=== PATIENT | male | born 1965 | race Caucasian/White ===

== ENCOUNTER 2019-03-09 17:32 | Observation (INO) | payer OTHER ==
[2019-03-09 17:39] VITALS: BMI 39.1
[2019-03-09] MEDS ORDERED: Sodium Chloride 0.9% 1,000 ML IV STA (18:15)
[2019-03-09 19:11] LABS: BASO # 0.02 K/mm3 (0.0-2.0); BASO % 0.2 % (0.0-3.0); EOS # 0.3 (0.0-0.7); EOS % 2.9 % (1.5-5.0); HEMOGLOBIN 13.9 g/dL (14.0-18.0); LYMPH % 21.8 % (22.0-35.0); MEAN CELL VOLUME 90.9 fl (80.0-105.0); MEAN CORPUSCULAR HEMOGLOBIN 31.7 pg (25.0-35.0); MEAN CORPUSCULAR HGB CONC 34.8 g/dl (31.0-37.0); MEAN PLATELET VOLUME 8.9 fl (7.0-11.0); MONO # 0.7 (0.1-0.6); MONO % 8.2 % (1.0-6.0); RBC 4.39 10^6/uL (3.5-6.1); RED CELL DISTRIBUTION WIDTH 12.4 % (11.5-14.5)
--- NOTE | 2019-03-09 19:11 | ED PDOC ---
Arrival/HPI - General Chief Complaint: Dizziness/Lightheaded Time Seen by Provider: 03/09/19 17:36 Historian: Patient - History of Present Illness Narrative History of Present Illness (Text): 03/09/19 19:03 53 year old M with pmh of COPD presents complaining of dizziness 1.5 hrs prior to arrival. Patient felt like the room was spinning. He reports he was home sitting on the couch, felt nauseous, went to the bathroom and had an episode of vomiting, and bowel movement non diarrhea, non bloody. He mentioned he felt well this morning and over the weekend, did drink over the weekend but not today. Patient denies any fevers, headache, URI, shortness of breath, dyspnea on exertion, abdominal pain, diarrhea, back pain, neck pain, or any other complaint. Patient went to [facility] 2 weeks ago. Patient says he his a non smoker. Time/Duration: 1-3 hours Symptom Onset: Sudden Symptom Course: Unchanged Activities at Onset: Light Context: Home Past Medical History - Provider Review Nursing Documentation Reviewed: Yes - Infectious Disease Hx of Infectious Diseases: None - Cardiac Hx Cardiac Disorders: No - Pulmonary Hx Respiratory Disorders: Yes Hx Chronic Obstructive Pulmonary Disease (COPD): Yes - Neurological Hx Neurological Disorder: No - HEENT Hx HEENT Disorder: No - Renal Hx Renal Disorder: No - Endocrine/Metabolic Hx Endocrine Disorders: No - Hematological/Oncological Hx Blood Disorders: No - Integumentary Hx Dermatological Disorder: No - Musculoskeletal/Rheumatological Hx Musculoskeletal Disorders: No - Gastrointestinal Hx Gastrointestinal Disorders: No - Genitourinary/Gynecological Hx Genitourinary Disorders: No - Psychiatric Hx Psychophysiologic Disorder: No Hx Substance Use: No - Surgical History Other/Comment: knee sx - Anesthesia Hx Anesthesia: Yes Hx Anesthesia Reactions: No Hx Malignant Hyperthermia: No Family/Social History - Physician Review Nursing Documentation Reviewed: Yes Family/Social History: Unknown Family HX Smoking Status: Never Smoked Hx Alcohol Use: Yes Frequency of alcohol use: Socially Hx Substance Use: No Allergies/Home Meds Allergies/Adverse Reactions: Allergies No Known Allergies Allergy (Verified 03/09/19 18:00) Review of Systems - Physician Review All systems were reviewed & negative as marked: Yes - Review of Systems Constitutional: absent: Fevers Respiratory: absent: SOB, Cough, Wheezing Cardiovascular: absent: Chest Pain, Palpitations, ASENCIO, Syncope Gastrointestinal: Nausea (not active), Vomiting (non active). absent: Abdominal Pain, Stool Changes, Constipation, Diarrhea, Hematochezia, Hematemesis Genitourinary Male: absent: Dysuria, Hematuria Musculoskeletal: absent: Arthralgias, Back Pain, Neck Pain, Myalgias Skin: absent: Rash, Abscess, Ulcer Neurological: Dizziness. absent: Headache Physical Exam Vital Signs Reviewed: Yes Vital Signs Temp Pulse Resp BP Pulse Ox 03/09/19 17:32 97.5 F L 75 18 170/102 H 96 Temperature: Afebrile Blood Pressure: Hypertensive Pulse: Regular Respiratory Rate: Normal Appearance: Positive for: Well-Appearing, Non-Toxic, Comfortable Pain Distress: Mild Mental Status: Positive for: Alert and Oriented X 3 - Systems Exam Head: Present: Atraumatic, Normocephalic Pupils: Present: PERRL Extroacular Muscles: Present: EOMI Conjunctiva: Present: Normal Mouth: Present: Dry Neck: Present: Normal Range of Motion Respiratory/Chest: Present: Clear to Auscultation, Good Air Exchange. No: Respiratory Distress, Accessory Muscle Use Cardiovascular: Present: Regular Rate and Rhythm, Normal S1, S2. No: Murmurs Abdomen: No: Tenderness, Distention, Peritoneal Signs Back: Present: Normal Inspection Upper Extremity: Present: Normal Inspection. No: Cyanosis, Edema Lower Extremity: Present: Normal Inspection. No: Edema Neurological: Present: GCS=15, CN II-XII Intact, Speech Normal Skin: Present: Warm, Dry, Normal Color. No: Rashes Psychiatric: Present: Alert, Oriented x 3, Normal Insight, Normal Concentration Medical Decision Making ED Course and Treatment: 03/09/19 19:11 Impression: 53 year old M presents complaining of dizziness 1.5 hrs prior to arrival Plan: -- CT head w/o contrast -- EKG -- Labs -- Chest X-ray -- Antivert -- Zofran -- Saline IV -- Urinalysis -- Reassess and disposition Prior Visits: Notes and results from previous visits were reviewed. Progress Notes: - RAD Interpretation Radiology Orders: 03/09/19 18:14 CHEST PORTABLE [RAD] Stat 03/09/19 18:16 HEAD W/O CONTRAST [CT] Stat - Medication Orders Current Medication Orders: Sodium Chloride (Sodium Chloride 0.9%) 1,000 mls @ 1,000 mls/hr IV .Q1H STA Stop: 03/09/19 19:14 Last Admin: 03/09/19 18:50 Dose: 1,000 mls/hr eMAR Start Stop Document 03/09/19 18:50 BB (Rec: 03/09/19 18:50 BB [id number]) Intravenous Solution Start Date 03/09/19 Start Time 18:50 Discontinued Medications Meclizine HCl (Antivert) 25 mg PO STAT STA Stop: 03/09/19 18:16 Last Admin: 03/09/19 18:50 Dose: 25 mg Ondansetron HCl (Zofran Inj) 4 mg IVP STAT STA Stop: 03/09/19 18:16 Last Admin: 03/09/19 18:50 Dose: 4 mg IVP Administration Document 03/09/19 18:50 BB (Rec: 03/09/19 18:50 BB [id number]) Charges for Administration # of IVP Administrations 1 - Scribe Statement The provider has reviewed the documentation as recorded by the Mulugeta Beavers All medical record entries made by the Malvinibanika were at my direction and personally dictated by me. I have reviewed the chart and agree that the record accurately reflects my personal performance of the history, physical exam, medical decision making, and the department course for this patient. I have also personally directed, reviewed, and agree with the discharge instructions and disposition. Disposition/Present on Arrival - Present on Arrival History of DVT/PE: No History of Uncontrolled Diabetes: No Urinary Catheter: No History of Decub. Ulcer: No History Surgical Site Infection Following: None - Disposition Referrals: Gil Meek MD [Primary Care Provider] - Follow up with primary
[2019-03-09 19:20] LABS: INR 1.06; PARTIAL THROMBOPLASTIN TIME 27.1 Seconds (26.9-38.3); PROTHROMBIN TIME 11.8 SECONDS (9.4-12.5)
--- NOTE | 2019-03-09 19:22 | ED PDOC ---
Arrival/HPI - General Chief Complaint: Dizziness/Lightheaded Time Seen by Provider: 03/09/19 17:36 Historian: Patient - History of Present Illness Narrative History of Present Illness (Text): 03/09/19 19:03 53 year old M with pmh of COPD presents complaining of dizziness 1.5 hrs prior to arrival. Patient feels like the room is spinning. He reports he was home sitting on the couch, felt dizzy and nauseous, went to the bathroom and had an episode of vomiting and bowel movement (non diarrhea, non bloody). He mentioned he felt well this morning and over the weekend, he admits he did drink over the weekend but not today. Patient denies any fevers, headache, URI, shortness of breath, dyspnea on exertion, abdominal pain, diarrhea, back pain, neck pain, or any other complaint. Patient went to [facility] 2 weeks ago. Patient says he is a non smoker. PMD A Fantasma Time/Duration: 1-3 hours Symptom Onset: Sudden Symptom Course: Unchanged Activities at Onset: Light Context: Home Past Medical History - Provider Review Nursing Documentation Reviewed: Yes - Infectious Disease Hx of Infectious Diseases: None - Cardiac Hx Cardiac Disorders: No - Pulmonary Hx Respiratory Disorders: Yes Hx Chronic Obstructive Pulmonary Disease (COPD): Yes - Neurological Hx Neurological Disorder: No - HEENT Hx HEENT Disorder: No - Renal Hx Renal Disorder: No - Endocrine/Metabolic Hx Endocrine Disorders: No - Hematological/Oncological Hx Blood Disorders: No - Integumentary Hx Dermatological Disorder: No - Musculoskeletal/Rheumatological Hx Musculoskeletal Disorders: No - Gastrointestinal Hx Gastrointestinal Disorders: No - Genitourinary/Gynecological Hx Genitourinary Disorders: No - Psychiatric Hx Psychophysiologic Disorder: No Hx Substance Use: No - Surgical History Other/Comment: knee sx - Anesthesia Hx Anesthesia: Yes Hx Anesthesia Reactions: No Hx Malignant Hyperthermia: No Family/Social History - Physician Review Nursing Documentation Reviewed: Yes Family/Social History: Unknown Family HX Smoking Status: Never Smoked Hx Alcohol Use: Yes Frequency of alcohol use: Socially Hx Substance Use: No Allergies/Home Meds Allergies/Adverse Reactions: Allergies No Known Allergies Allergy (Verified 03/09/19 18:00) Review of Systems - Physician Review All systems were reviewed & negative as marked: Yes - Review of Systems Constitutional: absent: Fevers Respiratory: absent: SOB, Cough, Wheezing Cardiovascular: absent: Chest Pain, Palpitations, ASENCIO Gastrointestinal: Nausea (non active), Vomiting (non active). absent: Abdominal Pain, Stool Changes, Diarrhea, Hematochezia, Hematemesis Genitourinary Male: absent: Dysuria Musculoskeletal: absent: Arthralgias, Back Pain, Neck Pain, Joint Swelling, Myalgias Skin: absent: Rash, Abscess, Ulcer Neurological: Dizziness (non active). absent: Headache, Facial Droop Physical Exam Vital Signs Reviewed: Yes Vital Signs Temp Pulse Resp BP Pulse Ox 03/09/19 17:32 97.5 F L 75 18 170/102 H 96 Temperature: Afebrile Blood Pressure: Hypertensive Pulse: Regular Respiratory Rate: Normal Appearance: Positive for: Well-Appearing, Non-Toxic, Comfortable Pain Distress: Mild Mental Status: Positive for: Alert and Oriented X 3 - Systems Exam Head: Present: Atraumatic, Normocephalic Pupils: Present: PERRL Extroacular Muscles: Present: EOMI Conjunctiva: Present: Normal Mouth: Present: Dry Neck: Present: Normal Range of Motion Respiratory/Chest: Present: Clear to Auscultation, Good Air Exchange. No: Respiratory Distress, Accessory Muscle Use Cardiovascular: Present: Regular Rate and Rhythm, Normal S1, S2. No: Murmurs Abdomen: No: Tenderness, Distention, Peritoneal Signs Back: Present: Normal Inspection Upper Extremity: Present: Normal Inspection. No: Cyanosis, Edema Lower Extremity: Present: Normal Inspection. No: Edema Neurological: Present: GCS=15, CN II-XII Intact, Speech Normal Skin: Present: Warm, Dry, Normal Color. No: Rashes Psychiatric: Present: Alert, Oriented x 3, Normal Insight, Normal Concentration Medical Decision Making ED Course and Treatment: 03/09/19 19:11 Impression: 53 year old M presents complaining of dizziness 1.5 hrs prior to arrival Plan: -- CT head w/o contrast -- EKG -- Labs -- Chest X-ray -- Antivert -- Zofran -- Saline IV -- Urinalysis -- Reassess and disposition Prior Visits: Notes and results from previous visits were reviewed. Progress Notes: EKG : NSR at 71 bpm, (-) acute ST changes, as read by JUAN R. CXR : NAD, as read by JUAN R Labs reviewed and are wnl, troponin negative, d-dimer negative, alcohol level <5. CT Head Without IV contrast : BRAIN: No acute intraparenchymal hemorrhage. No mass lesion. No CT evidence for acute territorial infarct. No midline shift or extra-axial collections. VENTRICLES: No hydrocephalus. ORBITS: The orbits are unremarkable. SINUSES AND MASTOIDS: The paranasal sinuses and mastoid air cells are clear. BONES: Mildly displaced nasal bone fractures. SOFT TISSUES: Unremarkable. IMPRESSION: No acute intracranial abnormality.Mildly displaced nasal bone fractures. On reevaluation, patient reports no improvement of symptoms, still reports of feeling dizzy as if the room is spinning even when he opens his eyes, is unable to stand up, denies any headache, CP, SOB. On exam, patient remains awake alert and oriented 3 in mild distress. Results d/w the patient. Advised that he will need to stay for further observation. Case d/w Dr. Marvin Meek, agrees with plan for observation, states that the patient's symptoms are likely labrynthitis. - RAD Interpretation Radiology Orders: 03/09/19 18:14 CHEST PORTABLE [RAD] Stat 03/09/19 18:16 HEAD W/O CONTRAST [CT] Stat - Medication Orders Current Medication Orders: Discontinued Medications Sodium Chloride (Sodium Chloride 0.9%) 1,000 mls @ 1,000 mls/hr IV .Q1H STA Stop: 03/09/19 19:14 Last Admin: 03/09/19 18:50 Dose: 1,000 mls/hr eMAR Start Stop Document 03/09/19 18:50 BB (Rec: 03/09/19 18:50 BB [id number]) Intravenous Solution Start Date 03/09/19 Start Time 18:50 Meclizine HCl (Antivert) 25 mg PO STAT STA Stop: 03/09/19 18:16 Last Admin: 03/09/19 18:50 Dose: 25 mg Ondansetron HCl (Zofran Inj) 4 mg IVP STAT STA Stop: 03/09/19 18:16 Last Admin: 03/09/19 18:50 Dose: 4 mg IVP Administration Document 03/09/19 18:50 BB (Rec: 03/09/19 18:50 BB [id number]) Charges for Administration # of IVP Administrations 1 - PA / [employer] / Resident Statement MD/DO has reviewed & agrees with the documentation as recorded. - Scribe Statement The provider has reviewed the documentation as recorded by the Mulugeta Beavers All medical record entries made by the Mulugeta were at my direction and personally dictated by me. I have reviewed the chart and agree that the record accurately reflects my personal performance of the history, physical exam, medical decision making, and the department course for this patient. I have also personally directed, reviewed, and agree with the discharge instructions and disposition. Disposition/Present on Arrival - Present on Arrival Any Indicators Present on Arrival: No History of DVT/PE: No History of Uncontrolled Diabetes: No Urinary Catheter: No History of Decub. Ulcer: No History Surgical Site Infection Following: None - Disposition Have Diagnosis and Disposition been Completed?: Yes Diagnosis: Vertigo, Near syncope Disposition: HOSPITALIZED Disposition Time: 20:20 Patient Plan: Observation Condition: FAIR Referrals: Gil Meek MD [Primary Care Provider] - Follow up with primary Forms: [employer] (Irish)
[2019-03-09 19:24] LABS: ALB/GLOB RATIO 1.1 (1.1-1.8); ALBUMIN 4.2 g/dL (3.0-4.8); BLOOD UREA NITROGEN 17 mg/dL (7-21); CALCIUM 9.1 mg/dL (8.4-10.5); D DIMER < 200 ng/mlDDU (0-243); GFR NON-AFRICAN AMERICAN > 60
[2019-03-09 19:36] LABS: TROPONIN I < 0.01 ng/mL
[2019-03-09 19:41] LABS: ALT/SGPT 36 U/L (7-56); AST/SGOT 45 U/L (17-59); CK-MB 1.7 ng/mL (0.0-3.6)
[2019-03-09 20:23] LABS: URINE BILIRUBIN NEGATIVE (NEGATIVE); URINE BLOOD NEGATIVE (NEGATIVE); URINE GLUCOSE (UA) NEGATIVE (NEGATIVE); URINE LEUKOCYTE ESTERASE NEGATIVE Leu/uL (NEGATIVE); URINE PROTEIN 30 mg/dL (<30 mg/dL); URINE UROBILINOGEN 0.2 E.U./dL (<1 E.U./dL)
[2019-03-09 20:34] LABS: URINE APPEARANCE CLEAR (CLEAR); URINE COLOR YELLOW (YELLOW)
[2019-03-09 20:35] LABS: URINE RBC 0 - 2 /hpf (0-2)
[2019-03-09 22:17] VITALS: RESP 20
--- NOTE | 2019-03-10 08:00 | RAD ---
Date of service: 03/09/2019 HISTORY: dizziness COMPARISON: Chest radiographs 05/13/2017. TECHNIQUE: 1 view obtained. FINDINGS: LUNGS: No interval pulmonary disease appreciated bilaterally. PLEURA: No significant pleural effusion identified, no pneumothorax apparent. CARDIOVASCULAR: No aortic atherosclerotic calcification present. Normal cardiac size. No pulmonary vascular congestion. OSSEOUS STRUCTURES: No significant abnormalities. VISUALIZED UPPER ABDOMEN: Normal. OTHER FINDINGS: None. IMPRESSION: No interval acute cardiopulmonary disease appreciated.
--- NOTE | 2019-03-10 08:08 | CT ---
Date of service: 03/09/2019 PROCEDURE: CT HEAD WITHOUT CONTRAST. HISTORY: Dizziness COMPARISON: None available. TECHNIQUE: Axial computed tomography images were obtained through the head/brain without intravenous contrast. Radiation dose: Total exam DLP = 1562.25 mGy-cm. This CT exam was performed using one or more of the following dose reduction techniques: Automated exposure control, adjustment of the mA and/or kV according to patient size, and/or use of iterative reconstruction technique. FINDINGS: HEMORRHAGE: No intracranial hemorrhage. BRAIN: No mass effect or edema. No atrophy or chronic microvascular ischemic changes. VENTRICLES: Unremarkable. No hydrocephalus. CALVARIUM: Unremarkable. PARANASAL SINUSES: There is mild mucosal thickening within the ethmoid air complex extending superiorly into the frontal sinus. Minimal mucosal thickening both maxillary antra right greater than left.. Chronic bilateral nasal bone fracture deformities. MASTOID AIR CELLS: Unremarkable as visualized. No inflammatory changes. OTHER FINDINGS: None. IMPRESSION: No acute intracranial hemorrhage.
--- NOTE | 2019-03-10 10:58 | CARD ---
APPROVED REPORT Date of service: 03/09/2019 EKG Measurement Heart [id number] <Conclusion> Normal sinus rhythm Normal ECG
--- NOTE | 2019-03-10 20:17 | HP ---
HISTORY OF PRESENT ILLNESS: The patient is a 53-year-old man with no significant past medical history who presented for evaluation of a 1 day history of vertigo. He recently flew back from the [place] and reports a sudden onset of lightheadedness and dizziness since his flight. He denies ear pain, ear discharge, headache, visual disturbances or near-syncope associated with his symptoms. Due to the unrelenting nature of his vertigo he opted for ED evaluation. In the ED he was afebrile and hemodynamically stable. Routine laboratory studies were largely unremarkable and a CT of the head was negative for acute pathology. He was started on IV fluids, received a dose of Antivert and subsequently admitted for continued management of vertigo. PAST MEDICAL HISTORY: Hyperlipidemia. PAST SURGICAL HISTORY: Left meniscectomy. ALLERGIES: NKDA. MEDICATIONS: Lipitor 20 mg p.o. daily. FAMILY HISTORY: Noncontributory. SOCIAL HISTORY: The patient reports social alcohol use but denies illicit drug abuse or tobacco use. REVIEW OF SYSTEMS: A 12-point review of systems is negative except as per HPI. PHYSICAL EXAMINATION: VITAL SIGNS: Temperature 98.4, pulse 80, blood pressure 136/85, respiratory rate 20, oxygen saturation 98% on room air. GENERAL: No apparent distress. HEENT: PERRL, EOMI. No scleral icterus. No conjunctival pallor. NECK: No JVD. No bruits. LUNGS: Clear to auscultation. CARDIOVASCULAR: Regular rate and rhythm. Normal S1 and S2. ABDOMEN: Normoactive bowel sounds, soft, nontender, nondistended. EXTREMITIES: No edema. NEUROLOGIC: Awake, alert and oriented x 3. No focal motor deficits. LABORATORY DATA: WBC 9, hemoglobin 14, hematocrit 40, platelets 282. Sodium 141, potassium 4.8, chloride 105, bicarb 28, BUN 17, creatinine 0.8, glucose 118. Troponin < 0.01. IMAGING STUDIES: 1. Chest x-ray demonstrated no acute pathology. 2. CT of the head without contrast demonstrated no acute pathology. ASSESSMENT: The patient is a 53-year-old man with no significant past medical history who presented for evaluation of a 1-day history of vertigo. PLAN: 1. Vertigo, likely secondary to acute labyrinthitis. Neuroimaging studies negative for acute pathology. Continue Antivert 25 mg p.o. q. 8 hours as needed and Zofran 4 mg p.o. q. 8 hours as needed. 2. Hyperlipidemia. Resume Lipitor 20 mg p.o. daily. 3. Prophylaxis. GI prophylaxis not indicated as the patient is eating. DVT prophylaxis not indicated as the patient is ambulatory. CODE STATUS: Full code. Matt Meek MD MTDD
[2019-03-11 06:46] LABS: HEMOGLOBIN 14.1 g/dL (14.0-18.0); MEAN CELL VOLUME 91.6 fl (80.0-105.0); MEAN CORPUSCULAR HEMOGLOBIN 31.1 pg (25.0-35.0); MEAN CORPUSCULAR HGB CONC 33.9 g/dl (31.0-37.0); MEAN PLATELET VOLUME 9.2 fl (7.0-11.0); RBC 4.54 10^6/uL (3.5-6.1); RED CELL DISTRIBUTION WIDTH 12.5 % (11.5-14.5); WHITE BLOOD COUNT 6.9 10^3/uL (4.5-11.0)
[2019-03-11 07:00] LABS: BLOOD UREA NITROGEN 16 mg/dL (7-21); CALCIUM 9.1 mg/dL (8.4-10.5); GFR NON-AFRICAN AMERICAN > 60
[2019-03-11 08:02] VITALS: BP 148/92; PULSE 78; TEMP 98.2; O2SAT 96
--- NOTE | 2019-03-11 10:20 | PN ---
SUBJECTIVE: The patient was seen and examined at bedside on the remote telemetry gates. No acute events overnight. He remains afebrile, hemodynamically stable and reports significant improvement in his vertigo. Overall he feels okay and is looking forward to discharge home. OBJECTIVE: VITAL SIGNS: Temperature 98.2, pulse 78, blood pressure 148/92, respiratory rate 20, oxygen saturation 96% on room air. GENERAL: No apparent distress. HEENT: PERRL, EOMI. No scleral icterus. No conjunctival pallor. NECK: No JVD. No bruits. LUNGS: Clear to auscultation. CARDIOVASCULAR: Regular rate and rhythm. Normal S1, S2. No murmurs. ABDOMEN: Normoactive bowel sounds, soft, nontender, nondistended. EXTREMITIES: No edema. NEUROLOGIC: Awake, alert and oriented x 3. No focal motor deficits. LABORATORY DATA: WBC is 6.9, hemoglobin 14, hematocrit 42, platelets 284. Sodium 141, potassium 4.2, chloride 105, bicarb 28, BUN 16, creatinine 1, glucose 88. ASSESSMENT: The patient is a 53-year-old man with no significant past medical history who presented for evaluation of a 1 day history of vertigo. PLAN: 1. Vertigo, likely secondary to acute labyrinthitis, improving. Neuroimaging studies negative for acute pathology. Continue Antivert 25 mg p.o. every 8 hours as needed. 2. Hyperlipidemia. Continue Lipitor 20 mg p.o. daily. 3. Prophylaxis. GI prophylaxis not indicated as the patient is eating. DVT prophylaxis not indicated as the patient is ambulatory. CODE STATUS: Full code. Matt Meek MD MTDD
== END 2019-03-11 12:47 | disposition home or self-care (01) ==
LOC: ED 17:32 → ERH 20:16 → 3RNO 21:46
PROVIDERS: ADMIT Student in an Organized Health Care Education/Training Program; ATTEND Student in an Organized Health Care Education/Training Program
DX: R42 Dizziness and giddiness (principal); E78.5 Hyperlipidemia, unspecified; J44.9 Chronic obstructive pulmonary disease, unspecified; S02.2XXS Fracture of nasal bones, sequela
CPT/HCPCS: 36415; 70450; 71045; 80048; 80053; 80320; 81001; 82550; 82553; 83615; 83735; 84484; 85025; 85027; 85378; 85610; 85730; 93005; 96374; 99285; G0378; J2405; J7030